=== PATIENT | male | born 1990 | race Caucasian/White ===

== ENCOUNTER 2020-06-03 00:52 | Emergency (ER) | payer SELFPAY ==
--- NOTE | 2020-06-03 01:23 | EDM.PDOC ---
ED HPI GENERAL MEDICAL PROBLEM - General Chief Complaint: ENT Problem Stated Complaint: TOOTH PAIN Time Seen by Provider: 06/03/20 01:12 - History of Present Illness INITIAL COMMENTS - FREE TEXT/NARRATIVE: 30-year-old male presents the emergency room with a dental pain. This is been going on for the last couple of days. Progressively getting worse. The patient has not been able to get in to see a dentist. He is from [place] and and he is here working. Patient denies any fevers or chills. Patient has a left upper tooth that is quite tender he is started to notice a little bit of swelling in his cheek as well. Patient denies any other symptoms associated with this most unfortunate event. Left Upper Oral/Mouth Pain Score (Numeric/FACES): 8 - Related Data Allergies Allergy/AdvReac Type Severity Reaction Status Date / Time No Known Allergies Allergy Verified 06/03/20 01:01 Home Meds: Home Meds Amoxicillin 500 mg PO TID #29 tab 06/03/20 [Rx] Past Medical History - Past Health History Medical/Surgical History: Denies Medical/Surgical History Social & Family History - Tobacco Use Tobacco Use Status *Q: Unknown Ever Used Tobacco ED ROS ENT - Review of Systems Review Of Systems: See Below Constitutional: Reports: No Symptoms HEENT: Reports: Dental Pain. Denies: Eye Pain, Nose Pain, Rhinitis, Sinus Problem Respiratory: Reports: No Symptoms Cardiovascular: Reports: No Symptoms GI/Abdominal: Reports: No Symptoms ED EXAM, ENT - Physical Exam Exam: See Below Exam Limited By: No Limitations General Appearance: Alert, No Apparent Distress Ears: Normal External Exam, Normal Canal, Hearing Grossly Normal, Normal TMs Nose: Normal Inspection, Normal Mucousa, No Blood Mouth/Throat: Normal Inspection, Normal Gums, Normal Lips, Normal Oropharynx, Dental Pain (Left upper most posterior exposed tooth has some surrounding erythema no obvious abscess and what could very well be some decay at the gumline.). No: Normal Teeth Head: Atraumatic, Normocephalic Neck: Lymphadenopathy (L). No: Lymphadenopathy (R) Respiratory/Chest: No Respiratory Distress, Lungs Clear, Normal Breath Sounds Cardiovascular: Regular Rate, Rhythm, No Edema, No Murmur Course - Vital Signs Last Recorded V/S: Last Vital Signs Temp 36.7 C 06/03/20 00:58 Pulse 82 06/03/20 00:58 Resp 16 06/03/20 00:58 BP 147/82 H 06/03/20 00:58 Pulse Ox 100 06/03/20 00:58 Departure - Departure Time of Disposition: 01:25 Disposition: Home, Self-Care 01 Clinical Impression: Dental caries - Discharge Information Forms: ED Department Discharge Additional Instructions: Return to the emergency room with any questions problems or worsening symptoms. 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 Start taking it midday today. Follow-up with a dentist as soon as you can ultimately this is how your tooth gets fixed. Tylenol and/or Motrin as needed for discomfort. Sepsis Event Note (ED) - Evaluation Sepsis Screening Result: No Definite Risk - Focused Exam Vital Signs: Vital Signs Temp Pulse Resp BP Pulse Ox 06/03/20 00:58 36.7 C 82 16 147/82 H 100
[2020-06-03] MEDS ORDERED: Amoxicillin 500 MG Cap PO ONE (01:25)
== END 2020-06-03 01:39 | disposition home or self-care (01) ==
LOC: JD.ED 00:52
DX: K02.9 Dental caries, unspecified (principal)
CPT/HCPCS: 99282; A9270; 99283